=== PATIENT | male | born 1975 ===

== ENCOUNTER 2021-09-14 16:56 | Emergency (ER) | payer SELFPAY ==
[~2021-09-14] VITALS: Ht 160 cm; Wt 63.6 kg
[2021-09-14] MEDS ORDERED: LIDOCAINE 5% (LIDODERM) PATCH TD ONE (17:45)
[2021-09-14] MEDS ORDERED: NORCO, ANEXSIA 5/325MG TABLET (HYDROcodone/ACETAMINOPHEN) PO ONE (17:45)
[2021-09-14] MEDS ORDERED: KETOROLAC 60MG 2ML VIAL IM ONE (17:45)
[2021-09-14 19:51] VITALS: BP 134/77
[2021-09-14] MEDS ORDERED: **NOTE PATIENT COMMENT** MISC XX ONE (21:00)
== END 2021-09-14 20:02 | disposition home or self-care (01) ==
LOC: M ED 16:56 → EDBD 16:56 → M ED 20:02
DX: M54.50 Low back pain, unspecified (principal); M25.552 Pain in left hip; W19.XXXA Unspecified fall, initial encounter; Y92.410 Unspecified street and highway as the place of occurrence of the external cause; Y93.01 Activity, walking, marching and hiking; Y99.9 Unspecified external cause status; Z88.0 Allergy status to penicillin
CPT/HCPCS: 71101; 72072; 72110; 72170; 73502; 96372; 99284; J1885